=== PATIENT | female | born 1940 | race Two or more races ===

== ENCOUNTER 2023-07-25 20:44 | Inpatient (IN) | payer MEDICARE, OTHER ==
[~2023-07-25] VITALS: Ht 162.6 cm; Wt 76.9 kg
[2023-07-25 21:37] LABS: BASOPHILS # (AUTO) 0.1 K/uL (0.0-0.2); BASOPHILS % (AUTO) 0.8 % (0.0-2.0); EOSINOPHILS # (AUTO) 0.1 K/uL (0.0-0.7); EOSINOPHILS % (AUTO) 1.2 % (0.0-6.0); HEMATOCRIT 36 % (33-45); HEMOGLOBIN 12.1 g/dL (11.5-14.8); LYMPHOCYTES % (AUTO) 15.3 % (20.0-44.0); MEAN CORPUSCULAR HEMOGLOBIN 29 PG (26.0-33.0); MEAN CORPUSCULAR HGB CONC 33 g/dl (31.0-36.0); MEAN CORPUSCULAR VOLUME 86 fL (82-100); MONOCYTES # (AUTO) 0.2 K/uL (0.1-1.30); MONOCYTES % (AUTO) 3.8 % (2.0-12.0); NEUTROPHILS # (AUTO) 5.2 K/uL (1.8-8.9); NEUTROPHILS % (AUTO) 78.9 % (43.0-81.0); PLATELET COUNT (AUTO) 285 K/uL (150-450); RED CELL DISTRIBUTION WIDTH 15.7 % (11.5-15.0); WHITE BLOOD COUNT (AUTO) 6.5 K/uL (4.3-11.0)
[2023-07-25 21:45] LABS: CALCIUM, SERUM 9.7 mg/dL (8.5-10.1); CARBON DIOXIDE 25 mmol/L (21-32); CHLORIDE 105 mmol/L (98-107); CREATININE 0.9 mg/dL (0.6-1.3); GLUCOSE 120 mg/dL (74-106); POTASSIUM 3.7 mmol/L (3.5-5.1); SODIUM SERUM 140 mmol/L (136-145); UREA NITROGEN, BLOOD 20 mg/dL (7-18)
[2023-07-25 21:51] LABS: ALANINE AMINOTRANSFERASE 17 U/L (12-78); ALBUMIN 3.5 g/dL (3.4-5.0); ALCOHOL, BLOOD < 3 mg/dL (0-10); ALKALINE PHOSPHATASE 87 U/L (46-116); ASPARTATE AMINOTRANSFERASE 15 U/L (15-37); BILIRUBIN,DIRECT 0.1 mg/dL (0.0-0.2); BILIRUBIN,TOTAL 0.3 mg/dL (0.2-1.0); TOTAL PROTEIN, SERUM 7.3 g/dL (6.4-8.2)
[2023-07-25 21:53] LABS: SALICYLATE 0.9 mg/dL (2.8-20.0); SERUM AMMONIA < 5 umol/L (11-32)
[2023-07-25 21:59] LABS: THYROID STIMULATING HORMONE 3.263 uIU/mL (0.358-3.74)
[2023-07-25 22:04] LABS: INR 1.04 (0.91-1.10); PARTIAL THROMBOPLASTIN TIME 21.9 SEC (24.3-34.3)
[2023-07-25] MEDS ORDERED: Z GUARD REMEDY 4 OZ OINT TP PRN (23:00)
[2023-07-25] MEDS ORDERED: MAGNESIUM HYDROXIDE 30 ML UDC PO PRN (23:00)
[2023-07-25] MEDS ORDERED: ZOLPIDEM TARTRATE 5 MG TABLET PO PRN (23:00)
[2023-07-25] MEDS ORDERED: MAG HYDROX/AL HYDROX/SIMETH 30 ML UDC PO PRN (23:00)
[2023-07-25] MEDS ORDERED: IV NS 0.9% 1,000 ML IV SCH (23:00)
[2023-07-25] MEDS ORDERED: ACETAMINOPHEN 325 MG TABLET PO PRN (23:00)
[2023-07-25] MEDS ORDERED: ONDANSETRON HCL/PF 4 MG/2 ML VIAL IVP PRN (23:00)
[2023-07-25] MEDS ORDERED: BUSP5TAB3 PO (23:40)
[2023-07-25] MEDS ORDERED: SERT50TA PO (23:40)
[2023-07-25] MEDS ORDERED: DONE5TAB7 PO (23:41)
[2023-07-25] MEDS ORDERED: OLME20TA13 PO (23:42)
[2023-07-25 23:53] LABS: APPEARANCE,URINE CLEAR (CLEAR); BILIRUBIN,URINE NEGATIVE (NEGATIVE); BLOOD, URINE TRACE-INTA Ery/uL (NEGATIVE); COLOR,URINE YELLOW (YELLOW); KETONES,URINE NEGATIVE (NEGATIVE); LEUKOCYTE ESTERASE ,URINE NEGATIVE (NEGATIVE); NITRITE, URINE NEGATIVE (NEGATIVE); PROTEIN,URINE 1+ mg/dl (NEGATIVE); UGLUCOSE NEGATIVE (NEGATIVE); UROBILINOGEN,URINE 0.2 EU/dL (0.2)
[2023-07-26 00:09] LABS: AMPHETAMINE, URINE NEGATIVE (NEGATIVE); BARBITURATE, URINE NEGATIVE (NEGATIVE); BENZODIAZEPINE, URINE NEGATIVE (NEGATIVE); CANNABINOID, URINE NEGATIVE (NEGATIVE); COCCAINE, URINE NEGATIVE (NEGATIVE); OPIATE, URINE NEGATIVE (NEGATIVE); PHENCYCLIDINE SCREEN,URINE NEGATIVE (NEGATIVE)
[2023-07-26 00:30] LABS: ADD URINE CULTURE NO; BACTERIA,URINE Few /HPF (None Seen); MUCUS,URINE Few /LPF (None Seen); RBC,URINE 0-2 /HPF (0-2); WBC,URINE 0-2 /HPF (0-3)
[2023-07-26 01:39] VITALS: BP 162/88; TEMP 98; O2SAT 96
[2023-07-26 07:01] LABS: CALCIUM, SERUM 9.3 mg/dL (8.5-10.1); CREATININE 0.8 mg/dL (0.6-1.3); POTASSIUM 3.6 mmol/L (3.5-5.1)
[2023-07-26 07:04] LABS: THYROID STIMULATING HORMONE 1.958 uIU/mL (0.358-3.74)
[2023-07-26 07:06] LABS: BASOPHILS % (AUTO) 0.8 % (0.0-2.0); EOSINOPHILS % (AUTO) 0.1 % (0.0-6.0); HEMATOCRIT 35 % (33-45); HEMOGLOBIN 11.6 g/dL (11.5-14.8); LYMPHOCYTES % (AUTO) 16.4 % (20.0-44.0); MEAN CORPUSCULAR HEMOGLOBIN 29 PG (26.0-33.0); MEAN CORPUSCULAR HGB CONC 33 g/dl (31.0-36.0); MEAN CORPUSCULAR VOLUME 87 fL (82-100); MONOCYTES # (AUTO) 0.4 K/uL (0.1-1.30); MONOCYTES % (AUTO) 7.3 % (2.0-12.0); NEUTROPHILS # (AUTO) 4.4 K/uL (1.8-8.9); NEUTROPHILS % (AUTO) 75.4 % (43.0-81.0); PLATELET COUNT (AUTO) 278 K/uL (150-450); RED BLOOD CELL COUNT(AUTO) 4.06 MIL/uL (4.0-5.2); RED CELL DISTRIBUTION WIDTH 15.3 % (11.5-15.0); WHITE BLOOD COUNT (AUTO) 5.8 K/uL (4.3-11.0)
[2023-07-26] MEDS ORDERED: SERT25TA PO (07:44)
[2023-07-26] MEDS ORDERED: DONE10TA44 PO (07:44)
[2023-07-26] MEDS ORDERED: OLME5TAB6 PO (07:44)
[2023-07-26] MEDS: IV NS 0.9% 1,000 ML IV PRN (10:12)
[2023-07-26] MEDS: LORAZEPAM 1 MG TABLET PO PRN ×2 (15:10→21:38)
[2023-07-26] MEDS: busPIRone 5 MG TABLET PO SCH (16:37)
[2023-07-26 20:00] VITALS: BP 153/72; TEMP 99; O2SAT 97
[2023-07-26] MEDS: DONEPEZIL 5 MG TABLET PO SCH (21:39)
[2023-07-26] MEDS: SERTRALINE HCL 25 MG TABLET PO SCH (21:39)
[2023-07-26] MEDS ORDERED: LOSARTAN POTASSIUM 25 MG TABLET PO SCH (22:00)
[2023-07-27] VITALS (7 sets, daily range): BP systolic 115–182; BP diastolic 59–85; TEMP 97.5–99.5; O2SAT 96–97
[2023-07-27] MEDS: IV NS 0.9% 1,000 ML IV PRN (05:45)
[2023-07-27 06:21] LABS: CALCIUM, SERUM 8.4 mg/dL (8.5-10.1); CARBON DIOXIDE 24 mmol/L (21-32); CHLORIDE 107 mmol/L (98-107); CREATININE 0.7 mg/dL (0.6-1.3); GLUCOSE 97 mg/dL (74-106); POTASSIUM 3.5 mmol/L (3.5-5.1); SODIUM SERUM 142 mmol/L (136-145); UREA NITROGEN, BLOOD 14 mg/dL (7-18)
[2023-07-27] MEDS: busPIRone 5 MG TABLET PO SCH ×2 (08:14→17:59)
[2023-07-27] MEDS: VALSARTAN 80 MG TABLET PO SCH (10:45)
[2023-07-27] MEDS: CARVEDILOL 6.25 MG TABLET PO SCH ×2 (14:41→18:03)
[2023-07-27] MEDS: DONEPEZIL 5 MG TABLET PO SCH (21:05)
[2023-07-27] MEDS: SERTRALINE HCL 25 MG TABLET PO SCH (21:05)
[2023-07-27] MEDS: LORAZEPAM 1 MG TABLET PO PRN (21:45)
[2023-07-28] VITALS: BP 121/62; TEMP 97.9; O2SAT 95
[2023-07-28 04:00] VITALS: BP 143/92; TEMP 97; O2SAT 96
[2023-07-28 08:00] VITALS: BP 133/76; TEMP 97.9; O2SAT 94
[2023-07-28] MEDS: CARVEDILOL 6.25 MG TABLET PO SCH ×2 (08:58→16:12)
[2023-07-28] MEDS: VALSARTAN 80 MG TABLET PO SCH (08:58)
[2023-07-28] MEDS: busPIRone 5 MG TABLET PO SCH ×2 (08:58→16:11)
[2023-07-28 12:00] VITALS: BP 121/54; TEMP 98.2; O2SAT 94
[2023-07-28 16:00] VITALS: BP 122/75; TEMP 97.9; O2SAT 94
[2023-07-28 20:00] VITALS: BP 120/83; TEMP 99.5; O2SAT 97
[2023-07-28] MEDS: SERTRALINE HCL 25 MG TABLET PO SCH (21:04)
[2023-07-28] MEDS: DONEPEZIL 5 MG TABLET PO SCH (21:04)
[2023-07-29 04:00] VITALS: BP 137/92; TEMP 98.4; O2SAT 99
[2023-07-29] MEDS: VALSARTAN 80 MG TABLET PO SCH (09:01)
[2023-07-29] MEDS: CARVEDILOL 6.25 MG TABLET PO SCH ×2 (09:01→17:47)
[2023-07-29] MEDS: busPIRone 5 MG TABLET PO SCH ×2 (09:02→16:00)
[2023-07-29 12:00] VITALS: BP 120/91; TEMP 98.4; O2SAT 99
[2023-07-29 17:47] VITALS: BP 122/84
== END 2023-07-29 21:57 | DRG 74 ==
LOC: ER 20:46 → TELE1 22:27 → MEDSG1 07-28 09:32
PROVIDERS: ADMIT Nurse Practitioner Acute Care
DX: G90.8 Other disorders of autonomic nervous system (principal); F01.53 Vascular dementia, unspecified severity, with mood disturbance; F01.54 Vascular dementia, unspecified severity, with anxiety; E86.0 Dehydration; F32.A Depression, unspecified; F43.10 Post-traumatic stress disorder, unspecified; I10 Essential (primary) hypertension; Z20.822 Contact with and (suspected) exposure to COVID-19; F41.9 Anxiety disorder, unspecified; M50.30 Other cervical disc degeneration, unspecified cervical region; I35.1 Nonrheumatic aortic (valve) insufficiency
CPT/HCPCS: 36415; 70450-TC; 71045-TC; 72125-TC; 80048-TC; 80061-TC; 80076-TC; 81001; 82140-TC; 82728-TC; 82962-TC; 83540-TC; 83735-TC; 84100-TC; 84439-TC; 84443-TC; 84484-TC; 85025-TC; 85730-TC; 93307-TC; 97110-TC; 97116-TC; 97530-TC; A4223; G0378; G0480; J7030; J7070